=== PATIENT | female | born 2000 | race Caucasian/White ===

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

== ENCOUNTER 2018-06-05 19:10 | Emergency (ER) | payer BC ==
[2018-06-05 19:28] VITALS: BP 144/67
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
--- NOTE | 2018-06-05 19:59 | CR ---
[id number] RAD/RAD Ankle Right 3V Min Exam: RAD Ankle Right 3V Min Indication:RIGHT ANKLE PAIN Comparison: No prior imaging for comparison. Discussion: Acute fracture of the distal fibular metaphysis. Majority of the fracture appears obliquely orientated. Lateral view demonstrates a possible transverse component anteriorly with slight separation at the fracture site at between 2 and 3 mm. Fracture line does extend into the distal tibiofibular syndesmosis. However, mortise appears at least radiographically intact. No other fracture. Impression: Acute distal fibular fracture, described above. Bob Ramos MD 06/05/181956 Thank you for allowing us to participate in the care of your patient.
[2018-06-05] MEDS: Acetaminophen/HYDROcodone 325-10 MG Tab PO ONE (20:05)
[2018-06-05] MEDS: Take Home: Acetaminophen/HYDROcodone 325-5 MG, 5 Tab Pack PO ONE (20:23)
== END 2018-06-05 20:24 | disposition home or self-care (01) ==
LOC: VM.ED 19:10
DX: S82.831A Other fracture of upper and lower end of right fibula, initial encounter for closed fracture (principal); F17.210 Nicotine dependence, cigarettes, uncomplicated; W00.0XXA Fall on same level due to ice and snow, initial encounter
CPT/HCPCS: 73610-RT; 99283-25; A9270-GY

== ENCOUNTER 2018-12-30 11:01 | Emergency (ER) | payer BC ==
[2018-12-30] MEDS ORDERED: Ondansetron 4 MG/2 ML SDV IVPUSH ONE (11:21)
[2018-12-30] MEDS ORDERED: Ketorolac 15 MG/ML SDV IVPUSH ONE (11:21)
[2018-12-30] MEDS ORDERED: Sodium Chloride 0.9% 10 ML Syringe FLUSH PRN (11:21)
[2018-12-30] MEDS ORDERED: Sodium Chloride 0.9% 1,000 ML IV ONE (11:22)
--- NOTE | 2018-12-30 11:44 | EDM.PDOC ---
ED HPI GENERAL MEDICAL PROBLEM - General Chief Complaint: Abdominal Pain Stated Complaint: abdominal pain Time Seen by Provider: 12/30/18 11:15 Source of Information: Reports: Patient History Limitations: Reports: No Limitations - History of Present Illness INITIAL COMMENTS - FREE TEXT/NARRATIVE: Patient comes into the emergency department with complaint of abdominal discomfort. Patient states it started approximately 2-1/2 hours prior to arrival to the emergency room. Patient states that it was a cramping throbbing sensation on the left lower abdominal cavity and is radiated towards the back. She also states is tender in the back. She denies any concerns with urinary retention, hesitancy, frequency. She states that the abdominal pain was sudden abrupt normocephalic constipation type discomfort that she's had in the past. She denies any fever, vomiting, chest pain, short of breath, dizziness, lower extremity edema. Patient does admit that she has began to feel nauseous in the last half hour. She finds comfort when she is lying down and she feels more discomfort when she is up moving around. She denies any other concerns or complains. She did state when she tried to use the bathroom she noted that her stool is very dark/black appearance just not her normal. Onset: Sudden Location: Reports: Abdomen Quality: Reports: Sharp, Throbbing Improves with: Reports: Immobilization Worsens with: Reports: Movement Context: Reports: Other Associated Symptoms: Reports: Loss of Appetite, Nausea/Vomiting. Denies: Chest Pain, Cough, Diaphoresis, Fever/Chills, Headaches, Shortness of Breath, Syncope Upper Abdomen Pain Score (Numeric/FACES): 8 - Related Data Allergies Allergy/AdvReac Type Severity Reaction Status Date / Time No Known Allergies Allergy Verified 12/30/18 11:55 Home Meds: Home Meds Norgestimate-Ethinyl Estradiol [[place]-Linyah 28 Tablet] 1 each PO DAILY 06/05/18 [History] Past Medical History Respiratory History: Reports: Asthma - Past Surgical History Musculoskeletal Surgical History: Reports: Other (See Below) Other Musculoskeletal Surgeries/Procedures:: bilateral calcaneous navicular removal ED ROS GENERAL - Review of Systems Review Of Systems: ROS reveals no pertinent complaints other than HPI. Constitutional: Reports: No Symptoms HEENT: Reports: No Symptoms Respiratory: Reports: No Symptoms Cardiovascular: Reports: No Symptoms Endocrine: Reports: No Symptoms GI/Abdominal: Reports: Abdominal Pain, Black Stool, Flatus. Denies: Constipation, Diarrhea, Decreased Appetite, Distension : Reports: No Symptoms Musculoskeletal: Reports: No Symptoms Skin: Reports: No Symptoms Neurological: Reports: No Symptoms ED EXAM, GI/ABD - Physical Exam Exam: See Below Exam Limited By: No Limitations General Appearance: Alert, WD/WN, No Apparent Distress Nose: Normal Inspection, Normal Mucosa, No Blood Throat/Mouth: Normal Inspection, Normal Lips, Normal Teeth, Normal Oropharynx, Normal Voice Respiratory/Chest: No Respiratory Distress, Lungs Clear, No Accessory Muscle Use , Chest Non-Tender Cardiovascular: Normal Peripheral Pulses, Regular Rate, Rhythm GI/Abdominal Exam: Tender. No: Distended, Guarding, Rigid, Rebound, Hernia Back Exam: Normal Inspection, Full Range of Motion Extremities: Normal Inspection, Normal Range of Motion, Non-Tender, No Pedal Edema, Normal Capillary Refill Neurological: Alert, Oriented, Normal Gait Psychiatric: Normal Affect, Normal Mood Skin Exam: Warm, Dry, Intact, Normal Color Course - Vital Signs Last Recorded V/S: Last Vital Signs Temp 37.1 C 12/30/18 11:15 Pulse 85 12/30/18 11:15 Resp 16 12/30/18 11:15 BP 114/56 L 12/30/18 11:15 Pulse Ox 98 12/30/18 11:15 - Orders/Labs/Meds Orders: Active Orders 24 hr Category Date Time Status FECAL OCCULT BLOOD,POC SCRN [POC] Urgent Lab 12/30/18 11:55 Ordered Sodium Chloride 0.9% [Saline Flush] Med 12/30/18 11:21 Active 10 ml FLUSH ASDIRECTED PRN Peripheral IV Insertion Adult [OM.PC] Stat Oth 12/30/18 11:21 Ordered Medication Orders Sodium Chloride (Saline Flush) 10 ml FLUSH ASDIRECTED PRN PRN Reason: Keep Vein Open Labs: Laboratory Tests 12/30/18 12/30/18 Range/Units 11:36 11:36 WBC 9.1 (4.0-10.0) x10^3/uL RBC 4.74 (4.00-5.50) x10^6/uL Hgb 14.1 (12.0-16.0) g/dL Hct 41.9 (33.0-47.0) % MCV 88.4 (78.0-93.0) fL MCH 29.7 (26.0-32.0) pg MCHC 33.7 (32.0-36.0) g/dL RDW Coeff of Lizzy 13.3 (10.0-15.0) % Plt Count 283 (130-400) x10^3/uL Neut % (Auto) 68.1 (50.0-80.0) % Lymph % (Auto) 20.7 L (25.0-50.0) % [place] % (Auto) 6.4 (2.0-11.0) % Eos % (Auto) 4.4 H (0.0-4.0) % Baso % (Auto) 0.4 (0.2-1.2) % Sodium 142 (69-191) mmol/L Potassium 3.8 (1.5-9.9) mmol/L Chloride 105 (54-184) mmol/L Carbon Dioxide 23 (21-32) mmol/L Anion Gap 17.8 (10-20) mmol/L BUN 7 (7-18) mg/dL Creatinine 0.8 (0.55-1.02) mg/dL Est Cr Clr Drug Dosing TNP Estimated GFR (MDRD) > 60 Glucose 92 (74-106) mg/dL Calcium 9.4 (8.5-10.1) mg/dL Corrected Calcium 9.48 (8.5-10.1) mg/dL Total Bilirubin 0.3 (0.2-1.0) mg/dL AST 23 (15-37) U/L ALT 36 (14-59) U/L Alkaline Phosphatase 71 (46-116) U/L Total Protein 8.2 (6.4-8.2) g/dL Albumin 3.9 (3.4-5.0) g/dL Globulin 4.3 Albumin/Globulin Ratio 0.91 Meds: Medications Generic Name Dose Route Start Last Admin Trade Name Freq PRN Reason Stop Dose Admin Sodium Chloride 10 ml 12/30/18 11:21 Saline Flush FLUSH ASDIRECTED PRN Keep Vein Open Discontinued Medications Generic Name Dose Route Start Last Admin Trade Name Freq PRN Reason Stop Dose Admin Sodium Chloride 1,000 mls @ 1,000 mls/hr 12/30/18 11:22 12/30/18 11:40 Normal Saline IV 12/30/18 12:21 1,000 mls/hr ONETIME ONE Administration Ketorolac Tromethamine 15 mg 12/30/18 11:21 12/30/18 11:40 Toradol IVPUSH 12/30/18 11:22 15 mg ONETIME ONE Administration Ondansetron HCl 4 mg 12/30/18 11:21 12/30/18 11:42 Zofran IVPUSH 12/30/18 11:22 4 mg ONETIME ONE Administration Departure - Departure Time of Disposition: 12:50 Disposition: Home, Self-Care 01 Condition: Good Clinical Impression: Gastroenteritis Abdominal pain Qualifiers: Abdominal location: left upper quadrant Qualified Code(s): R10.12 - Left upper quadrant pain - Discharge Information *PRESCRIPTION DRUG MONITORING PROGRAM REVIEWED*: Not Applicable *COPY OF PRESCRIPTION DRUG MONITORING REPORT IN PATIENT MARIEL: Not Applicable Instructions: Viral Gastroenteritis, Adult, [id number] Referrals: Hugo Hendrix MD [Primary Care Provider] - Forms: ED Department Discharge Additional Instructions: 1. rest 2. increase your water intake slowly 3. Eat more foods that are bland while you are experiencing cramping 4. Can use heating pad3-4 times a day for 20 mins 5. Can use Tylenol and ibuprofen as needed for pain and discomfort 6. Follow up with PCP if symptoms progress or worsen 7. Currently Surgeon states he does not feel the appendix is the concern. He suggest to continue to monitor and if symptoms arise follow up for further investigation. 8. Call with questions and concerns as needed - My Orders Last 24 Hours: My Active Orders 12/30/18 11:21 Sodium Chloride 0.9% [Saline Flush] 10 ml FLUSH ASDIRECTED PRN Peripheral IV Insertion Adult [OM.PC] Stat 12/30/18 11:55 FECAL OCCULT BLOOD,POC SCRN [POC] Urgent - Assessment/Plan Last 24 Hours: My Active Orders 12/30/18 11:21 Sodium Chloride 0.9% [Saline Flush] 10 ml FLUSH ASDIRECTED PRN Peripheral IV Insertion Adult [OM.PC] Stat 12/30/18 11:55 FECAL OCCULT BLOOD,POC SCRN [POC] Urgent Assessment:: 1. abdominal pain 2. Viral Gastroenteritis Plan: 1. IV initiated with IV fluids provided in the ER 2. Labs completed in the ER. Results reviewed with patient 3. Zofran and Toradol given for pain and discomfort and nausea 4. CT scan completed in the ER. Results reviewed with patient 5. Stool occult completed by nursing. (negative) 6. Consult completed with production wood craftsman Surgeon [facility] who feels the appendix is an incidental finding and does not recommend surgical or hospitalization. At this time he recommends the pt monitor and return if symptoms arise on the right lower quadrant or worsening symptoms arise. 7. Pt is now pain free and resting without complications. She is ready for discharge 8. Patient understands the surgeons request and states she will follow up as needed 9. All questions and concerns were addressed prior to discharge.
[2018-12-30 11:59] LABS: ANION GAP 17.8 mmol/L (10-20); CHLORIDE,CL 105 mmol/L (54-184); SODIUM,NA 142 mmol/L (69-191)
[2018-12-30 12:01] VITALS: BP 114/56; PULSE 85
--- NOTE | 2018-12-30 12:34 | CT ---
[id number] CT/CT Abdomen Pelvis WO IV EXAM: CT Abdomen Pelvis WO IV CLINICAL DATA: ABDOMINAL PAIN. COMPARISON STUDY: None. FINDINGS: Lung bases are clear. Liver, spleen, gallbladder, pancreas, and adrenal glands are unremarkable. Increased density of the medullary pyramids in both kidneys. Findings are nonspecific but can be seen with early changes of medullary calcinosis. No calculi or urinary tract obstruction. Urinary bladder is unremarkable. No small bowel obstruction or inflammation. Appendix is dilated measuring up to 8 mm and fluid-filled. No significant periappendiceal reactive change. Small amount of free fluid in the pelvis, within normal physiologic limits for reproductive age female. Uterus and adnexal regions are unremarkable. IMPRESSION: Fluid-filled mildly dilated appendix measuring up to 8 mm. In the appropriate clinical setting, early changes of acute appendicitis are possible. Surgical consultation recommended. Other findings are described above. Bob Ramos MD 12/30/18 [id number] Thank you for allowing us to participate in the care of your patient.
== END 2018-12-30 13:05 | disposition home or self-care (01) ==
LOC: VM.ED 11:01
DX: K52.9 Noninfective gastroenteritis and colitis, unspecified (principal); R10.12 Left upper quadrant pain
CPT/HCPCS: 36415; 74176; 80053; 85025; 96361; 96374; 96375; 99284-25; G0328; J1885; J2405; J7030